=== PATIENT | female | born 1950 | race African-American/Black ===

== ENCOUNTER 2019-02-25 23:38 | Emergency (ER) | payer MEDICARE, OTHER ==
[~2019-02-25] VITALS: Ht 160 cm; Wt 109.0 kg
[2019-02-26 00:04] LABS: HEMATOCRIT 42.4 % (36-46); HEMOGLOBIN 13.5 g/dL (12.0-16.0); MEAN CORPUSCULAR HEMOGLOBIN 28.3 pg (26.0-34.0); MEAN CORPUSCULAR HGB CONC 31.9 G/dL (31.0-37.0); MEAN CORPUSCULAR VOLUME 89 fL (80-100); PLATELET COUNT (AUTO) 174 K/uL (150-450); RED BLOOD CELL COUNT(AUTO) 4.78 MIL/uL (4.00-5.20)
[2019-02-26] MEDS ORDERED: DICL2100G TP (00:08)
[2019-02-26] MEDS ORDERED: MONT10TA21 PO (00:08)
[2019-02-26] MEDS ORDERED: SACU1TAB4 PO (00:08)
[2019-02-26] MEDS ORDERED: BENZ-51 PO (00:08)
[2019-02-26] MEDS ORDERED: METO-558 PO (00:08)
[2019-02-26] MEDS ORDERED: PRAV40TA4 PO (00:08)
[2019-02-26] MEDS ORDERED: BUME1TAB34 PO (00:08)
[2019-02-26] MEDS ORDERED: ASPI81TA40 PO (00:08)
[2019-02-26] MEDS ORDERED: SPIR25 PO (00:08)
[2019-02-26] MEDS ORDERED: ERGO500054 PO (00:08)
[2019-02-26] MEDS ORDERED: TIOT185 IH (00:08)
[2019-02-26] MEDS ORDERED: METF-960 PO (00:08)
[2019-02-26] MEDS ORDERED: CETI10TA59 PO (00:08)
[2019-02-26] MEDS ORDERED: MELO-107 PO (00:08)
[2019-02-26] MEDS ORDERED: HYDR-4455 PO (00:12)
[2019-02-26 00:15] LABS: GLUCOSE,POINT OF CARE 237 MG/DL (70-110)
[2019-02-26 00:25] LABS: CALCIUM, TOTAL 9.6 mg/dL (8.8-10.5); CREATININE 2.71 mg/dL (0.60-1.30); POTASSIUM 5.1 mmol/L (3.5-5.1)
[2019-02-26 00:39] LABS: ALBUMIN 3.4 g/dL (3.4-5.0); BILIRUBIN,TOTAL 0.8 mg/dL (0.1-1.0); INR 1.2 (0.9-1.1); MAGNESIUM 1.6 mg/dL (1.80-2.40); PROTHROMBIN TIME 11.8 SEC (9.4-11.6); TOTAL PROTEIN, SERUM 7.3 g/dL (6.4-8.2)
[2019-02-26] MEDS ORDERED: DOXYCYCLINE HYCLATE 100 MG in DEXTROSE 5%-WATER 100 ML IV ONE (00:45)
[2019-02-26] MEDS ORDERED: CefTRIAXone 1 GM/DEXTROSE 50 ML IV ONE (00:45)
[2019-02-26] MEDS ORDERED: SODIUM CHLORIDE 0.9% 1,000 ML IV ONE (00:45)
[2019-02-26 00:52] LABS: BAND NEUTROPHILS % (MANUAL) 0 % (0-5)
[2019-02-26 00:53] LABS: CORRECTED WHITE BLOOD COUNT 10.4 K/uL (4.5-11.0); LYMPHOCYTES % (MANUAL) 35 % (22-44); MONOCYTES % (MANUAL) 12 % (2-9); PLATELET MORPHOLOGY COMMENT GIANT PLTS PRESENT; SEGMENTED NEUTROPHILS % 53 % (40-70)
[2019-02-26] MEDS ORDERED: FUROSEMIDE 40 MG/4 ML VIAL IVP ONE (01:15)
[2019-02-26] MEDS ORDERED: AZITHROMYCIN 500 MG/NS 250 ML IV ONE (01:15)
[2019-02-26 01:30] VITALS: BP 99/65
[2019-02-26] MEDS ORDERED: 0.9% SODIUM CHLORIDE 10 ML SYRINGE IVP PRN (02:15)
[2019-02-26] MEDS ORDERED: ACETAMINOPHEN 325 MG TABLET PO PRN (02:15)
[2019-02-26] MEDS ORDERED: LIDOCAINE 5% TRANSDERMAL PATCH TD ONE (02:45)
[2019-02-26] MEDS ORDERED: ONDANSETRON HCL 4 MG/2 ML VIAL IVP ONE (03:15)
[2019-02-26] MEDS ORDERED: NOREPINEPHRINE 4 MG/D5%-WATER 250 ML IV ONE (03:46)
[2019-02-26] MEDS ORDERED: NOREPINEPHRINE 4 MG/D5%-WATER 250 ML IV PRN (04:15)
[2019-02-26] MEDS ORDERED: ALTEPLASE IV ONE ×4 (04:15→04:30)
[2019-02-26] MEDS ORDERED: WATER FOR INJECTION STERILE IV ONE ×4 (04:15→04:30)
[2019-02-26 04:30] LABS: GLUCOSE,POINT OF CARE 186 MG/DL (70-110)
[2019-02-26 04:30] LABS: GLUCOSE,POINT OF CARE 178 MG/DL (70-110)
[2019-02-26] MEDS ORDERED: DOPamine HCL 400 MG/D5%-WATER 250 ML IV PRN (04:30)
[2019-02-26] MEDS ORDERED: EPINEPHrine 1:10,000 [1 MG/10 ML] SYRINGE ONE ×2 (04:38→04:40)
== END 2019-02-26 06:58 | disposition expired ==
LOC: EMS 23:39
DX: I46.9 Cardiac arrest, cause unspecified (principal); J96.90 Respiratory failure, unspecified, unspecified whether with hypoxia or hypercapnia; N17.9 Acute kidney failure, unspecified; J40 Bronchitis, not specified as acute or chronic; I50.9 Heart failure, unspecified; E66.9 Obesity, unspecified; J44.9 Chronic obstructive pulmonary disease, unspecified; Z68.41 Body mass index [BMI] 40.0-44.9, adult
CPT/HCPCS: 31500; 36415; 71045; 80053; 82550; 82962; 83605; 83735; 83880; 84484; 85025; 85610; 85730; 87040; 92950; 93005; 94660; 96365; 96375; 99291; 99292; J0171; J0456; J0696; J2405; J2997; J3490 ×2; J7030; J7060; 82948; 94002